=== PATIENT | male | born 1980 | race Caucasian/White ===

== ENCOUNTER 2017-12-09 15:35 | Outpatient (CLI) | payer OTHER | END 2017-12-09 17:00 | disposition home or self-care (01) | LOC: DCC 15:35 | DX: N45.2 Orchitis (principal); N34.0 Urethral abscess | CPT/HCPCS: G0463 ==

== ENCOUNTER 2017-12-25 14:35 | Outpatient (CLI) | payer OTHER | END 2017-12-26 14:13 | disposition home or self-care (01) | LOC: DCC 14:35 | DX: N34.0 Urethral abscess (principal); N45.2 Orchitis | CPT/HCPCS: G0463 ==